=== PATIENT | female | born 1995 | race Caucasian/White ===

== ENCOUNTER 2018-03-16 18:59 | Inpatient (IN) | payer OTHER ==
[2018-03-16] VITALS (13 sets, daily range): BP systolic 102–124; BP diastolic 56–80; PULSE 71–85; TEMP 98.5
[~2018-03-16] VITALS: Ht 180.3 cm; Wt 93.2 kg
[2018-03-16] MEDS ORDERED: PRENATAL PO (19:11)
[2018-03-16] MEDS ORDERED: FLAGYL500 MG PO (19:11)
[2018-03-16] MEDS ORDERED: TYLENOL 500MG500 MG PO (19:12)
[2018-03-16 19:59] LABS: BASO % 0.2 % (0.0-2.0); EOS # 0.1 (0.0-0.7); EOS % 0.5 % (0-4.0); GRAN # 9.6 (1.4-6.5); GRAN % 79.6 % (42.2-75.2); HEMOGLOBIN 12.7 g/dl (12.5-16.0); LYMPH # 1.4 (1.2-3.4); LYMPH % 11.7 % (20.0-51.0); MEAN CELL VOLUME 86 fl (80.0-100.0); MEAN CORPUSCULAR HEMOGLOBIN 30 pg (27.0-31.0); MEAN CORPUSCULAR HGB CONC 35 g/dl (33.0-37.0); MEAN PLATELET VOLUME 11.3 fl (7.4-10.4); MONO # 0.9 (0.1-0.6); MONO % 7.6 % (1.7-9.3); PLATELET COUNT 155 K/mm3 (130-400); RED BLOOD COUNT 4.23 M/mm3 (4.10-5.30); REDCELL DISTRIBUTION WIDTH-CV 13.2 % (11.5-14.5)
[2018-03-16 20:22] LABS: HEMATOCRIT 36.5 % (37.0-47.0)
[2018-03-17] VITALS (17 sets, daily range): BP systolic 101–129; BP diastolic 55–79; PULSE 61–117; TEMP 97.6–98.5
[2018-03-18 09:40] VITALS: BP 110/66; PULSE 82; TEMP 98.7
[2018-03-18] MEDS ORDERED: IBU800 M1 PO (11:07)
== END 2018-03-18 14:20 | disposition home or self-care (01) | DRG 807 ==
LOC: LDRO 18:59 → LDR 19:36 → OB 03-17 05:10
PROVIDERS: Obstetrics & Gynecology
PROC: 10E0XZZ Delivery of Products of Conception, External Approach (ICD-10-PCS; principal; 2018-03-17)
PROC: 0KQM0ZZ Repair Perineum Muscle, Open Approach (ICD-10-PCS; 2018-03-17)
DX: O77.0 Labor and delivery complicated by meconium in amniotic fluid (principal); Z37.0 Single live birth; Z3A.39 39 weeks gestation of pregnancy; O70.1 Second degree perineal laceration during delivery
CPT/HCPCS: J2590; J7120